=== PATIENT | female | born 1995 | race Caucasian/White ===

== ENCOUNTER 2018-07-24 12:44 | Emergency (ER) | payer BC, MEDICAID ==
[2018-07-24 13:06] VITALS: RESP 18; TEMP 98.2
[2018-07-24 13:17] VITALS: BMI 34.5
--- NOTE | 2018-07-24 14:02 | ED PDOC ---
Arrival/HPI - General Chief Complaint: Abnormal Skin Integrity Time Seen by Provider: 07/24/18 12:55 Historian: Patient - History of Present Illness Narrative History of Present Illness (Text): 07/24/18 13:17 23 year old female, with no significant past medical history, presets to the Emergency department for evaluation of cyst to the inferior medial aspect of left breast today. Patient informs history of similar cyst in the past, which required surgical intervention for removal. Patient informs associated pain and redness to the area but denies any drainage from the cyst. Patient denies any other associated somatic complaints. Patient denies any fevers, chills, headache, dizziness, chest pain, shortness of breath, dyspnea on exertion, cough, abdominal pain, nausea, vomiting, diarrhea, back pain, neck pain, or any other complaints. Time/Duration: < week Symptom Onset: Gradual Symptom Course: Unchanged Activities at Onset: Light Context: Home Past Medical History - Provider Review Nursing Documentation Reviewed: Yes - Reproductive Menopause: No - Cardiac Hx Cardiac Disorders: No - Endocrine/Metabolic Hx Endocrine Disorders: Yes Hx Diabetes Mellitus Type 2: Yes - Psychiatric Hx Substance Use: No - Surgical History Other/Comment: cyst left breast Family/Social History - Physician Review Nursing Documentation Reviewed: Yes Family/Social History: Unknown Family HX Smoking Status: Never Smoked Hx Alcohol Use: No Hx Substance Use: No Allergies/Home Meds Allergies/Adverse Reactions: Allergies No Known Allergies Allergy (Verified 07/24/18 13:13) Home Medications: Home Meds Medication Instructions Recorded Confirmed MetFORMIN ER [Glucophage XR] 500 mg PO BID 07/24/18 07/24/18 Review of Systems - Physician Review All systems were reviewed & negative as marked: Yes - Review of Systems Constitutional: absent: Fevers Respiratory: absent: SOB, Cough Cardiovascular: absent: Chest Pain Gastrointestinal: absent: Abdominal Pain, Diarrhea, Nausea, Vomiting Genitourinary Female: absent: Dysuria, Urine Output Changes Musculoskeletal: absent: Back Pain, Neck Pain Skin: Other (cyst to inferior medial aspect of left breast) Neurological: absent: Headache, Dizziness Psychiatric: absent: Anxiety Physical Exam Vital Signs Reviewed: Yes Vital Signs Temp Pulse Resp BP Pulse Ox 07/24/18 12:44 98.2 F 105 H 18 139/95 H 97 Temperature: Afebrile Blood Pressure: Hypertensive Pulse: Tachycardic Respiratory Rate: Normal Appearance: Positive for: Well-Appearing, Non-Toxic, Comfortable Pain Distress: None Mental Status: Positive for: Alert and Oriented X 3 - Systems Exam Head: Present: Atraumatic, Normocephalic Pupils: Present: PERRL Extroacular Muscles: Present: EOMI Conjunctiva: Present: Normal Neck: Present: Normal Range of Motion Respiratory/Chest: Present: Clear to Auscultation, Good Air Exchange. No: Respiratory Distress, Accessory Muscle Use Cardiovascular: Present: Regular Rate and Rhythm, Normal S1, S2, Tachycardic. No: Murmurs Abdomen: No: Tenderness, Distention, Peritoneal Signs Breast/Axillary: Present: Other (2 cm soft cyst noted to left breast at the 7 o clock position in the outer edge. Mild tenderness with some mild surroundign e rythema, no purulent discharge, no drainage, no fluctuance, no endurance. Does have keloid in the region from previous cyst removal.) Back: Present: Normal Inspection Upper Extremity: Present: Normal Inspection. No: Cyanosis, Edema Lower Extremity: Present: Normal Inspection. No: Edema Neurological: Present: GCS=15, CN II-XII Intact, Speech Normal Skin: Present: Warm, Dry, Normal Color. No: Rashes Psychiatric: Present: Alert, Oriented x 3, Normal Insight, Normal Concentration Medical Decision Making ED Course and Treatment: 07/24/18 13:17 Impression: 23 year old female presents to the Emergency department for evaluation of left breast cyst. Plan: -- Tylenol -- Reassess and disposition Prior Visits: Notes and results from previous visits were reviewed. Progress Notes: Rx written for keflex as patient does have some erythema to the left breast. She has a cyst-like structure to the left breast that is soft and not fluctuant. Likely needs another surgical cyst removal. Patient advised to take abx as prescribed and follow up as outpatient. Return for any new or worsening symptoms. - Medication Orders Current Medication Orders: Discontinued Medications Ibuprofen (Motrin Tab) 600 mg PO STAT STA Stop: 07/24/18 13:18 Last Admin: 07/24/18 13:46 Dose: 600 mg MAR Pain/Vitals Document 07/24/18 13:46 EQ (Rec: 07/24/18 13:46 EQ [id number] Pain Reassessment Is This A Pain ReAssessment? No Sleep Is patient sleeping during reassessment? No Presence of Pain Presence of Pain Yes - Scribe Statement The provider has reviewed the documentation as recorded by the Scribe Maranda Nathan. All medical record entries made by the Monicaibe were at my direction and personally dictated by me. I have reviewed the chart and agree that the record accurately reflects my personal performance of the history, physical exam, medical decision making, and the department course for this patient. I have also personally directed, reviewed, and agree with the discharge instructions and disposition. Disposition/Present on Arrival - Present on Arrival Any Indicators Present on Arrival: No History of DVT/PE: No History of Uncontrolled Diabetes: No Urinary Catheter: No History of Decub. Ulcer: No History Surgical Site Infection Following: None - Disposition Have Diagnosis and Disposition been Completed?: Yes Diagnosis: Cyst of left breast Disposition: HOME/ ROUTINE Disposition Time: 14:08 Patient Problems: Current Active Problems Problem Status Onset Cyst of left breast Acute Condition: STABLE Additional Instructions: NELIDA RAO, thank you for letting us take care of you today. Your provider was Tiffanie Gavin MD and you were treated for chest pain inflammation. The emergency medical care you received today was directed at your acute symptoms. If you were prescribed any medication, please fill it and take as directed. It may take several days for your symptoms to resolve. Return to the Emergency Department if your symptoms worsen, do not improve, or if you have any other problems. Please contact your doctor or call one of the physicians/clinics you have been referred to that are listed on the Patient Visit Information form that is included in your discharge packet. Bring any paperwork you were given at discharge with you along with any medications you are taking to your follow up visit. Our treatment cannot replace ongoing medical care by a primary care provider outside of the emergency department. Thank you for allowing the [facility] team to be part of your care today. If you had an X-Ray or CT scan: A Radiologist will review the ED reading if any change in treatment is needed we will contact you. If you had a blood, urine, or wound culture: It will take several days for the results, if any change in treatment is needed we will contact you. If you had an STI test: It will take 48 hours for the results. Please call after 1 week if you have not heard back. Prescriptions: Cephalexin [Keflex] 500 mg PO Q6H #28 capsule Forms: [employer] (Divehi)
[2018-07-24 14:32] VITALS: BP 128/87; PULSE 92; O2SAT 98
--- NOTE | 2018-07-24 18:45 | CARD ---
APPROVED REPORT Date of service: 07/24/2018 EKG Measurement Heart [id number] 122P32 [id number] <Conclusion> Sinus tachycardia Otherwise normal ECG
== END 2018-07-24 14:31 | disposition home or self-care (01) ==
LOC: ED 12:44
DX: N60.02 Solitary cyst of left breast (principal)

== ENCOUNTER 2018-07-26 12:27 | Emergency (ER) | payer BC ==
[2018-07-26 12:27] VITALS: BMI 34.5
[2018-07-26 12:39] VITALS: RESP 18; TEMP 98.6
--- NOTE | 2018-07-26 13:09 | ED PDOC ---
Arrival/HPI - General Chief Complaint: Chest Pain Time Seen by Provider: 07/26/18 12:35 Historian: Patient - History of Present Illness Narrative History of Present Illness (Text): 07/26/18 13:0 23 year old female, presents to the emergency department complaining of draining abscess under left breast, since earlier this morning. Patient reports she was seen in the emergency department a few days ago for pain originating at the cyst underneath her left breast, and earlier today it began draining. Patient is worried it'll get infected, prompting her visit to the emergency department for further evaluation. She denies fevers, chills, headache, dizziness, shortness of breath, dyspnea on exertion, cough, abdominal pain, nausea, vomiting, diarrhea, back pain, neck pain, or any other complaint. PMD: Dr. Willie Mccormick Time/Duration: < week Symptom Onset: Gradual Activities at Onset: Light Context: Home Past Medical History - Provider Review Nursing Documentation Reviewed: Yes - Infectious Disease Hx of Infectious Diseases: None - Cardiac Hx Cardiac Disorders: No - Endocrine/Metabolic Hx Endocrine Disorders: Yes Hx Diabetes Mellitus Type 2: Yes - Psychiatric Hx Substance Use: No - Surgical History Other/Comment: cyst left breast Family/Social History - Physician Review Nursing Documentation Reviewed: Yes Family/Social History: No Known Family HX Smoking Status: Never Smoked Hx Alcohol Use: No Hx Substance Use: No Allergies/Home Meds Allergies/Adverse Reactions: Allergies No Known Allergies Allergy (Verified 07/24/18 13:13) Home Medications: Home Meds Medication Instructions Recorded Confirmed MetFORMIN ER [Glucophage XR] 500 mg PO BID 07/24/18 07/24/18 Review of Systems - Physician Review All systems were reviewed & negative as marked: Yes - Review of Systems Constitutional: absent: Fevers Respiratory: absent: SOB, Cough Gastrointestinal: absent: Abdominal Pain, Diarrhea, Nausea, Vomiting Musculoskeletal: absent: Back Pain, Neck Pain Skin: Abscess (under left breast) Neurological: absent: Headache, Dizziness Physical Exam Vital Signs Reviewed: Yes Vital Signs Temp Pulse Resp BP Pulse Ox 07/26/18 12:37 98.6 F 97 H 18 131/94 H 97 Temperature: Afebrile Blood Pressure: Normal Pulse: Regular Respiratory Rate: Normal Appearance: Positive for: Well-Appearing, Non-Toxic, Comfortable Pain Distress: None Mental Status: Positive for: Alert and Oriented X 3 - Systems Exam Head: Present: Atraumatic, Normocephalic Pupils: Present: PERRL Extroacular Muscles: Present: EOMI Conjunctiva: Present: Normal Mouth: Present: Moist Mucous Membranes Neck: Present: Normal Range of Motion Respiratory/Chest: Present: Clear to Auscultation, Good Air Exchange. No: Respiratory Distress, Accessory Muscle Use Cardiovascular: Present: Regular Rate and Rhythm, Normal S1, S2. No: Murmurs Abdomen: No: Tenderness, Distention, Peritoneal Signs Back: Present: Normal Inspection Upper Extremity: Present: Normal Inspection. No: Cyanosis, Edema Lower Extremity: Present: Normal Inspection. No: Edema Neurological: Present: GCS=15, CN II-XII Intact, Speech Normal Skin: Present: Warm, Dry, Normal Color, Abscess (fluctuant abscess 2cm under left breast, actively draining. scribe present as associate professor of automation. ). No: Rashes Psychiatric: Present: Alert, Oriented x 3, Normal Insight, Normal Concentration Medical Decision Making ED Course and Treatment: 07/26/18 13:07 Impression: 23 year old female who presents to the emergency department complaining of dr cardona abscess under left breast. Plan: -- Reassess and disposition Prior Visits: Notes and results from previous visits were reviewed. Patient was last seen in the emergency department on Progress Notes: - Procedure PROCEDURE NOTE (Text): 07/26/18 13:27 Procedure: Incision & Drainage Performed by the emergency provider Indication: Abscess Location: under left breast Preparation: The area was prepped and draped in the usual sterile fashion and was cleansed. Local infiltration of Lidocaine 1% without Epi. Procedure: The most fluctuant portion of the abscess was incised with a #11 scalpel. Post-Procedure: On exam the abscess is notably less fluctuant. The patient tolerated the procedure well, and there were no complications. - Scribe Statement The provider has reviewed the documentation as recorded by the Hailey Glass Provider Scribe Attestation: All medical record entries made by the Scribe were at my direction and personally dictated by me. I have reviewed the chart and agree that the record accurately reflects my personal performance of the history, physical exam, medical decision making, and the department course for this patient. I have also personally directed, reviewed, and agree with the discharge instructions and disposition. Disposition/Present on Arrival - Present on Arrival Any Indicators Present on Arrival: No History of DVT/PE: No History of Uncontrolled Diabetes: No Urinary Catheter: No History of Decub. Ulcer: No History Surgical Site Infection Following: None - Disposition Have Diagnosis and Disposition been Completed?: Yes Diagnosis: Breast abscess Disposition: HOME/ ROUTINE Disposition Time: 13:30 Condition: IMPROVED Discharge Instructions (ExitCare): Abscess Incision and Drainage (DC) Additional Instructions: NELIDA RAO, thank you for letting us take care of you today. The emergency medical care you received today was directed at your acute symptoms. If you were prescribed any medication, please fill it and take as directed. It may take several days for your symptoms to resolve. Return to the Emergency Department if your symptoms worsen, do not improve, or if you have any other problems. Please contact your doctor or call one of the physicians/clinics you have been referred to that are listed on the Patient Visit Information form that is included in your discharge packet. Bring any paperwork you were given at discharge with you along with any medications you are taking to your follow up visit. Our treatment cannot replace ongoing medical care by a primary care provider outside of the emergency department. Thank you for allowing the [facility] team to be part of your care today. Follow up with your primary care doctor in 2 days for re-evaluation of wound and possible packing change/removal. Prescriptions: Sulfamethoxazole/Trimethoprim [Bactrim DS 800 mg-160 mg] 1 tab PO BID #14 tab Forms: [employer] (Turkish)
[2018-07-26 14:57] VITALS: BP 134/89; PULSE 98; O2SAT 99
--- NOTE | 2018-07-26 18:41 | CARD ---
APPROVED REPORT Date of service: 07/26/2018 EKG Measurement Heart [id number] <Conclusion> Sinus tachycardia Otherwise normal ECG
== END 2018-07-26 14:30 | disposition home or self-care (01) ==
LOC: ED 12:27
DX: N61.1 Abscess of the breast and nipple (principal); E11.9 Type 2 diabetes mellitus without complications

== ENCOUNTER 2018-07-28 14:29 | Emergency (ER) | payer BC ==
[2018-07-28 14:29] VITALS: BMI 34.5
[2018-07-28 14:48] VITALS: RESP 18; O2SAT 99
--- NOTE | 2018-07-28 15:07 | ED PDOC ---
Arrival/HPI - General Historian: Patient - History of Present Illness Narrative History of Present Illness (Text): 07/28/18 15:02 23 y o female with past medical hx of DM2 presents to the ED for wound check of L breast abscess. Pt was in the ED 2 days ago for abscess worsening x 5 days and had I+D performed, along with wound packing and dressing. Pt was prescribed Keflex 500 q 6 h and instructed to follow-up with her PCP in 2 days for wound check/redressing. Pt states she came to the ED because her PMD's office was closed today. States that it is draining yellowish fluid and is tender to palpation. Otherwise denies any acute complaints. Denies fever, chills, chest pain, sob, n/v/d/c, abd pain, urinary complaints, or other symptoms. PMhx: DM2 PSurgHx: removal of cyst from L breast 2 y ago Allergies: NKDA Home meds: Metformin, Ozempic q weekly Fam hx: denies Soc hx: denies smoking, EtOH, or illicit drug use PMD: Dr. Mccormick Time/Duration: Other (5 days) Symptom Onset: Gradual Activities at Onset: Rest Context: Home <Neil Brown - Last Filed: 07/28/18 15:18> <Dalton Wiley - Last Filed: 07/28/18 15:19> - General Chief Complaint: Wound Check Past Medical History - Provider Review Nursing Documentation Reviewed: Yes - Travel History Have you recently traveled outside [place] w/in the past 3 mons?: No - Infectious Disease Hx of Infectious Diseases: None - Reproductive Menopause: Yes (10 years ago) - Cardiac Hx Cardiac Disorders: No - Pulmonary Hx Respiratory Disorders: No - Neurological Hx Neurological Disorder: No - HEENT Hx HEENT Disorder: No - Renal Hx Renal Disorder: No - Endocrine/Metabolic Hx Endocrine Disorders: Yes Hx Diabetes Mellitus Type 2: Yes - Hematological/Oncological Hx Blood Disorders: No - Integumentary Other/Comment: removal of cyst to chest 2 days ago - Musculoskeletal/Rheumatological Hx Musculoskeletal Disorders: No - Gastrointestinal Hx Gastrointestinal Disorders: No - Genitourinary/Gynecological Hx Genitourinary Disorders: No - Psychiatric Hx Substance Use: No - Surgical History Other/Comment: cyst left breast - Anesthesia Hx Anesthesia Reactions: No Hx Malignant Hyperthermia: No <Neil Brown - Last Filed: 07/28/18 15:18> Family/Social History - Physician Review Nursing Documentation Reviewed: Yes Family/Social History: No Known Family HX Smoking Status: Never Smoked Hx Alcohol Use: No Hx Substance Use: No <Neil Brown - Last Filed: 07/28/18 15:18> Allergies/Home Meds <eNil Brown - Last Filed: 07/28/18 15:18> <Dalton Wiley - Last Filed: 07/28/18 15:19> Allergies/Adverse Reactions: Allergies No Known Allergies Allergy (Verified 07/24/18 13:13) Home Medications: Home Meds Medication Instructions Recorded Confirmed MetFORMIN ER [Glucophage XR] 500 mg PO BID 07/24/18 07/24/18 Review of Systems - Review of Systems Constitutional: absent: Fevers, Night Sweats Cardiovascular: absent: Chest Pain, HAIR Gastrointestinal: absent: Abdominal Pain, Constipation, Diarrhea, Nausea, Vomiting Musculoskeletal: absent: Arthralgias Skin: Abscess Neurological: absent: Headache Endocrine: absent: Diaphoresis <Neil Brown - Last Filed: 07/28/18 15:18> Physical Exam Vital Signs Reviewed: Yes Vital Signs Temp Pulse Resp BP Pulse Ox 07/28/18 14:29 98.4 F 98 H 18 140/87 99 Temperature: Afebrile Blood Pressure: Normal Pulse: Regular Respiratory Rate: Normal Appearance: Positive for: Well-Appearing, Non-Toxic, Comfortable Pain Distress: Mild Mental Status: Positive for: Alert and Oriented X 3 - Systems Exam Head: Present: Atraumatic, Normocephalic Pupils: Present: PERRL Extroacular Muscles: Present: EOMI Conjunctiva: Present: Normal Mouth: Present: Moist Mucous Membranes Neck: Present: Normal Range of Motion. No: JVD, Lymphadenopathy Respiratory/Chest: Present: Clear to Auscultation, Good Air Exchange, Tender to Palpation. No: Respiratory Distress, Accessory Muscle Use, Wheezes, Rales, Rhonchi Cardiovascular: Present: Regular Rate and Rhythm, Normal S1, S2. No: Murmurs, Rub, Gallop Abdomen: Present: Normal Bowel Sounds. No: Tenderness, Distention, Rebound, Mass/Organomegaly Upper Extremity: Present: Normal Inspection, Normal ROM, NORMAL PULSES, Neurovascularly Intact, Capillary Refill < 2s. No: Cyanosis, Edema Lower Extremity: Present: Normal Inspection, NORMAL PULSES, Neurovascularly Intact, Capillary Refill < 2 s. No: Edema Neurological: Present: GCS=15, CN II-XII Intact, Speech Normal Skin: Present: Warm, Dry, Normal Color, Abscess (Abscess at 9:00 position of L breast draining serosanguinous fluid). No: Rashes Psychiatric: Present: Alert, Oriented x 3, Normal Insight, Normal Concentration <Neil Brown - Last Filed: 07/28/18 15:18> Vital Signs Temp Pulse Resp BP Pulse Ox 07/28/18 14:29 98.4 F 98 H 18 140/87 99 <Dalton Wiley - Last Filed: 07/28/18 15:19> Medical Decision Making ED Course and Treatment: 07/28/18 15:12 23 y o female presents for wound check for L breast abscess s/p I+D 2 days ago. Draining serosanguinous fluid, mild tenderness to palpation. New dressing placed. Pt to be discharged to home at this time. Continue with Keflex prescription q 6 h and finish antibiotic course. Can follow-up in PMD's office within 2-3 days for wound check. Informed pt that area will still be draining fluid for the next several days, can return to ED if symptoms worsen. <Neil Brown - Last Filed: 07/28/18 15:18> ED Course and Treatment: 07/28/18 15:18 Seen and examined with the resident. Our history and physical exam reveals a young woman who presents to the emergency department for packing removal of a left breast abscess done in the emergency department 3 days ago. Symptoms are improved. She is taking her Keflex. Packing was removed and the wound has some serosanguineous drainage. No surrounding erythema or warmth. Does not appear to have a cellulitic infection. <Dalton Wiley - Last Filed: 07/28/18 15:19> Disposition/Present on Arrival - Present on Arrival Any Indicators Present on Arrival: No History of DVT/PE: No History of Uncontrolled Diabetes: No Urinary Catheter: No History of Decub. Ulcer: No History Surgical Site Infection Following: None - Disposition Have Diagnosis and Disposition been Completed?: Yes Disposition Time: 15:15 Patient Plan: Discharge <Neil Brown - Last Filed: 07/28/18 15:18> <InezDalton - Last Filed: 07/28/18 15:19> - Disposition Diagnosis: Breast abscess Disposition: HOME/ ROUTINE Condition: IMPROVED Discharge Instructions (ExitCare): Skin Abscess Print Language: BENGALI Additional Instructions: Please follow-up with your primary care physician (Dr. Mccormick) within 2-3 days after discharge for wound check. Please take Keflex antibiotics as prescribed every 6 hours. Should your symptoms worsen, please call your primary care physician or report to your nearest emergency department. Referrals: Han Mccormick MD [Non-Staff] - Follow up with primary Forms: [employer] ([place] Islander)
[2018-07-28 15:31] VITALS: BP 136/85; PULSE 101; TEMP 98.5
== END 2018-07-28 15:20 | disposition home or self-care (01) ==
LOC: ED 14:29
DX: N61.1 Abscess of the breast and nipple (principal); E11.9 Type 2 diabetes mellitus without complications